=== PATIENT | male | born 1960 | race Caucasian/White ===

== ENCOUNTER 2019-05-26 11:28 | Day surgery (SDC) | payer OTHER ==
[~2019-05-26] VITALS: Ht 177.8 cm; Wt 62.7 kg
[~2019-05-26 11:28] MED LIST: SODIUM CHLORIDE 0.9% 1,000 ML ONE
[2019-05-26] MEDS ORDERED: PROPOFOL 1% 20 ML VIAL IVP ONE (11:29)
[2019-05-26] MEDS ORDERED: LIDOCAINE 1% 10 ML VIAL IM ONE (11:29)
[2019-05-26] MEDS ORDERED: SODIUM CHLORIDE 0.9% 1,000 ML IV ONE (12:00)
[2019-05-26] MEDS ORDERED: ESCI5SOL2 PO (12:10)
[2019-05-26] MEDS ORDERED: MIRT-92 PO (12:10)
[2019-05-26] MEDS ORDERED: FLUC200T PO (12:10)
[2019-05-26] MEDS ORDERED: FURO40 PO (12:10)
[2019-05-26] MEDS ORDERED: MELA5TAB3 PO (12:10)
[2019-05-26] MEDS ORDERED: LANS30 PO (12:10)
[2019-05-26] MEDS ORDERED: IPRA3AMP24 IH (12:10)
== END 2019-05-26 15:05 | disposition home or self-care (01) ==
LOC: SURGERY 11:28
PROVIDERS: ATTEND Student in an Organized Health Care Education/Training Program
DX: K74.60 Unspecified cirrhosis of liver (principal); I85.00 Esophageal varices without bleeding; K76.6 Portal hypertension; K31.89 Other diseases of stomach and duodenum; F11.90 Opioid use, unspecified, uncomplicated; Z79.899 Other long term (current) drug therapy
CPT/HCPCS: 43244; 93005; J2704; J3490; J7030